=== PATIENT | female | born 1950 | race Caucasian/White ===

== ENCOUNTER 2019-01-01 16:16 | Emergency (ER) | payer MEDICAID ==
[~2019-01-01] VITALS: Ht 172.7 cm; Wt 87.1 kg
[2019-01-01 16:39] VITALS: Ht 172.7 cm; Wt 87.1 kg
[2019-01-01 18:48] VITALS: BP 150/76
== END 2019-01-01 18:48 | disposition home or self-care (01) ==
LOC: ED 16:16
DX: L03.116 Cellulitis of left lower limb (principal); E78.00 Pure hypercholesterolemia, unspecified; Z90.710 Acquired absence of both cervix and uterus; Z98.890 Other specified postprocedural states
CPT/HCPCS: Q0092